=== PATIENT | male | born 1980 | race Two or more races ===

== ENCOUNTER 2018-01-05 16:11 | Emergency (ER) | payer OTHER ==
[2018-01-05] MEDS ORDERED: FLUCONAZOLE 150 MG TAB PO ONE (16:23)
--- NOTE | 2018-01-05 16:27 | EDPHY ---
H & P Time Seen by Provider: 01/05/18 16:15 HPI/ROS: CHIEF COMPLAINT: Foot pain HISTORY OF PRESENT ILLNESS: The patient is a 37-year-old inmate who comes to the emergency department complaining of pain cracking and drawing in between all of the toes on both feet. He states the symptoms have been present for about 4 weeks and worsening. No fever. He also complains about an ingrown toenail in his left foot that has already burst open. He does not have diabetes , HIV or immunosuppression. Severity: Moderate Modifying factors: None REVIEW OF SYSTEMS: Constitutional: denies: chills, fever, recent illness, recent injury EENTM: denies: blurred vision, double vision, nose congestion Respiratory: denies: cough, shortness of breath Cardiac: denies: chest pain, irregular heart rate, lightheadedness, palpitations Gastrointestinal/Abdominal: denies: abdominal pain, diarrhea, nausea, vomiting, blood streaked stools Genitourinary: denies: dysuria, frequency, hematuria, pain Musculoskeletal: denies: joint pain, muscle pain Skin: See above Neurological: denies: headache, numbness, paresthesia, tingling, dizziness, weakness Hematologic/Lymphatic: denies: blood clots, easy bleeding, easy bruising Immunologic/allergic: denies: HIV/AIDS, transplant 10 systems reviewed and negative except as noted EXAM: GENERAL: Well-appearing, well-nourished and in no acute distress. HEAD: Atraumatic, normocephalic. EYES: Pupils equal round and reactive to light, extraocular movements intact, sclera anicteric, conjunctiva are normal. ENT: TMs normal, nares patent, oropharynx clear without exudates. Moist mucous membranes. NECK: Normal range of motion, supple without lymphadenopathy or JVD. LUNGS: Breath sounds clear to auscultation bilaterally and equal. No wheezes rales or rhonchi. HEART: Regular rate and rhythm without murmurs, rubs or gallops. ABDOMEN: Soft, nontender, normoactive bowel sounds. No guarding, no rebound. No masses appreciated. BACK: No CVA tenderness, no spinal tenderness, step-offs or deformities EXTREMITIES: See below, Normal range of motion, no pitting or edema. No clubbing or cyanosis. NEUROLOGICAL: Cranial nerves II through XII grossly intact. Normal speech, normal gait. 5/5 strength, normal movement in all extremities, normal sensation , normal reflexes PSYCH: Normal mood, normal affect. SKIN: The patient does have signs consistent with tinea pedis between the each toe. No large lacerations or lesions. No cellulitic changes. He also has a slightly ingrown toenail on the left 2nd toe medial aspect. It seems to have Burst previously. It has surrounding fungal infection. Source: Patient, Police Exam Limitations: No limitations - Medical/Surgical History Hx Asthma: No Hx Chronic Respiratory Disease: No Hx Diabetes: No Hx Cardiac Disease: No Hx Renal Disease: No Hx Cirrhosis: No Hx Alcoholism: No Hx HIV/AIDS: No Hx Splenectomy or Spleen Trauma: No Other PMH: denies - Family History Significant Family History: No pertinent family hx - Social History Smoking Status: Current some day smoker Alcohol Use: Sober Drug Use: None Constitutional: Initial Vital Signs Temperature (C) 36.9 C 01/05/18 16:52 Heart Rate 79 01/05/18 16:52 Respiratory Rate 20 01/05/18 16:52 Blood Pressure 147/97 H 01/05/18 16:52 O2 Sat (%) 93 01/05/18 16:52 O2 Delivery Mode Room Air Allergies/Adverse Reactions: No Known Allergies Allergy (Verified 01/05/18 16:56) Home Medications: Medication Instructions Recorded None 02/08/09 Ondansetron Odt [Zofran Odt 4 mg 4 mg PO Q4 PRN #20 tab 05/08/14 (RX)] Miconazole Nitrate [Dermafungal] 113 gm TP BID #1 oint...g. 01/05/18 Medical Decision Making ED Course/Re-evaluation: I will treat the patient for tinea pedis with single dose of Diflucan and then miconazole cream. I also advised him to use salt water baths for his ingrown toenail that seems to be resolving. He understands this plan. We discussed indications for returning. 5:30 p.m. While being discharged the patient also began complaining of chronic migraines. He has not seen a neurologist in the past. He is asking for referral to a neurologist. He is currently asymptomatic. Differential Diagnosis: Partial list of the Differential diagnosis considered include but were not limited to; ingrown toenail, fungal infection and although unlikely based on the history and physical exam, I also considered immunosuppression, trauma. I discussed these differential diagnoses and the plan with the patient as well as the usual and expected course. The patient understands that the diagnosis is provisional and that in medicine we are not always correct and that further workup is often warranted. Usual and customary warnings were given. All of the patient's questions were answered. The patient was instructed to return to the emergency department should the symptoms at all worsen or return, otherwise to followup with the physician as we discussed. - Data Points Medications Given: Discontinued Medications Clotrimazole (Lotrimin 1%) 1 renee TP BID BEAN Stop: 02/04/18 20:59 Last Admin: 01/05/18 17:22 Dose: 1 tub Fluconazole (Diflucan) 150 mg PO EDNOW ONE Stop: 01/05/18 16:24 Last Admin: 01/05/18 16:57 Dose: 150 mg Departure - Departure Disposition: Home, Routine, Self-Care Clinical Impression: Ingrown toenail of left foot Athletes foot Qualifiers: Laterality: bilateral Qualified Code(s): B35.3 - Tinea pedis Condition: Fair Instructions: Antifungals (On the skin), Butenafine (On the skin), Ingrown Nail (ED) Additional Instructions: Soaked your left foot and Epson salt bath twice daily for slightly ingrown left 2nd toenail. Referrals: NONE *PRIMARY CARE P,. [Primary Care Provider] - As per Instructions Royer Kapoor DO [Doctor of Osteopathy] - As per Instructions Prescriptions: Miconazole Nitrate [Dermafungal] 113 gm TP BID #1 oint...g.
[2018-01-05 16:56] VITALS: BP 147/97
[2018-01-05] MEDS ORDERED: CLOTRIMAZOLE 1% 15 GM CRTUBE TP SCH (21:00)
== END 2018-01-05 17:42 | disposition home or self-care (01) ==
DX: L60.0 Ingrowing nail (principal); B35.3 Tinea pedis